=== PATIENT | female | born 1985 | race Caucasian/White ===

== ENCOUNTER → 2023-06-23 08:59 | Outpatient (REF) | payer OTHER, SELFPAY | LOC: HWRAD 08:59 | PROVIDERS: ATTENDING PHYSICIAN Emergency Medicine | DX: M54.41 Lumbago with sciatica, right side (principal); M51.36 Other intervertebral disc degeneration, lumbar region | CPT/HCPCS: 72110 ==

== ENCOUNTER → 2023-06-24 14:31 | Outpatient (REF) | payer OTHER, SELFPAY | LOC: PAVMRI 14:31 | PROVIDERS: ATTENDING PHYSICIAN Emergency Medicine; FAMILY PHYSICIAN Nurse Practitioner Family | DX: M54.41 Lumbago with sciatica, right side (principal); M51.36 Other intervertebral disc degeneration, lumbar region | CPT/HCPCS: 72148 ==

== ENCOUNTER → 2023-08-07 09:19 | Outpatient (REF) | payer OTHER, SELFPAY | LOC: HWRAD 09:19 | PROVIDERS: ATTENDING PHYSICIAN Emergency Medicine | DX: E04.1 Nontoxic single thyroid nodule (principal) | CPT/HCPCS: 76536 ==

== ENCOUNTER 2023-08-07 10:33 | Emergency (ER) | payer OTHER, SELFPAY ==
[2023-08-07 10:41] VITALS: BP 108/74
[2023-08-07 11:32] VITALS: BP 101/70
[2023-08-07 12:00] VITALS: BP 110/80
--- NOTE | 2023-08-07 12:02 | ED.GENMED ---
History of Present Illness
General
Chief Complaint: Cold/Flu/URI Symptoms
Source: patient
Time Seen by Provider: 08/07/23 11:37
Travel History
Have you had any contact with someone who has COVID-19?: No
Do you have any symptoms of coronavirus? Fever > 100 degrees, chills, cough, shortness of breath, sore throat, loss of taste or smell, muscle aches, or headache?: No
History of Present Illness
History of Present Illness:
37-year-old female with past medical history of IBS, anemia, previous upper GI bleed from gastric ulcers presenting the emergency department for evaluation after she started to feel unwell this past Friday with symptoms including mild sore
throat, cough and persistent nausea and vomiting. Patient notes that she has 2 kids at home with 1 who test positive for strep and the other who had a suspected viral etiology with her symptoms being mostly resolved but with the patient's
continuing. Patient had been started on amoxicillin by her primary care provider this past Friday but continued with the nausea and vomiting, saw them again last night due to the persistent symptoms and was switched over to doxycycline but states
woke up this morning with continued nausea and vomiting and feeling generally weak so decided come to the ER for further evaluation. Patient states she has not had any fevers but has felt hot and cold. She has no other concerns at this time and is
denying any abdominal pain.
Past History
Past History
ED Past Medical History: Other (Low phosphorus low iron)
ED Past Surgical History: Urological
Social History
Tobacco: Non-smoker
Alcohol: None
Drug: None
Personal:
Living: with family
Employment: Employed
Family History
Family History: Other (Clotting disorder in maternal grandmother patient has protein S deficiency)
Review of Systems
Review of Systems
All Other Systems: ROS reviewed and negative except as documented in HPI and ROS
Phy Exam
Physical Exam
Physical Exam:
GENERAL: Alert , in no apparent distress
EYE: conjunctiva clear
NECK: Supple
ENT: o/p clr, mmm.
CARDIAC: Regular rate and rhythm
LUNGS: Clear breath sounds bilaterally, no acute respiratory distress, no wheezes/rales/rhonchi, intermittent nonproductive cough during the exam
Abdomen: Soft, hyperactive bowel sounds, nondistended
NEUROLOGICAL: Alert and oriented
SKIN: Warm and dry, skin intact.
MUSCULOSKELETAL: well perfused.
PSYCH: Normal and appropriate interaction.
Scores
Heart Failure Risk
Heart Failure Risk Score: Not Applicable
Heart Score for Chest Pain Patients
STEMI patient?: Not applicable
Withdrawal Assessment of Alcohol
Withdrawal Assessment Completed?: Not applicable
Course
Orders/Labs/Results
Orders:
Orders
08/07/23 11:33
COVID-19 Antigen Urgent
Source: Nasal Swab
Influenza A+B Rapid Molecular Urgent
KORIN Source: Nasal Swab
Specimen Description:
08/07/23 12:01
0.9% Sodium Chloride 1000 ml [Nss] 1,000 ml IV BOLUS
Ondansetron Injectable [Zofran] 4 mg IV NOW STA
08/07/23 12:02
Ondansetron Injectable [Zofran] 4 mg .ROUTE .STK-MED ONE
08/07/23 12:19
Complete Blood Count/With Diff Urgent
Comprehensive Metabolic Panel Urgent
Monotest Urgent
08/07/23 13:08
CR Chest - 2 Views Urgent
Comment:
Reason For Exam: cough x 7 days
Abnormal Lab Results
08/07/23
12:19
MPV 10.5 H fL
(7.4-10.4)
Absolute Monos (auto) 0.7 H 10^3/uL
(0.1-0.6)
08/07/23 12:19
08/07/23 12:19
Vital Signs
Initial and Last Documented VS:
Initial Vital Signs
Temp Pulse Resp BP Pulse Ox
98.1 F 81 18 108/74 100
08/07/23 10:41 08/07/23 10:41 08/07/23 10:41 08/07/23 10:41 08/07/23 10:41
Last Documented Vital Signs
Temp Pulse Resp BP Pulse Ox
98.1 F 81 18 110/80 99
08/07/23 10:41 08/07/23 10:41 08/07/23 10:41 08/07/23 12:00 08/07/23 12:15
MDM/Problems Addressed
Differential Diagnosis Includes:
Viral syndrome, antibiotic associated GI upset, electrolyte disturbance, dehydration, COVID, flu
MDM/Problems Addressed:
37-year-old female presenting to the emergency department for evaluation of GI upset combined with some mild URI-like symptoms over the last 7 days. She has had 2 children at home sick recently. Seen by primary care provider twice and was given
amoxicillin for her infection but with not much relief, switched to doxycycline last night but having worsening GI upset prompting her to come today. COVID and flu was ordered in triage. Will check labs as well as treat with Zofran and fluids.
Reassessment following
*Radiology
Radiology exam reviewed: preliminary read by ED provider (Unremarkable x-ray)
*Pulse Oximetry
Patient hypoxic: no
*Critical Care Note
Total Time (30-74mins, 75-104mins- exclusive of procedures): Not Applicable
ED Attending Note
-
Portions of this chart may have been created with voice recognition software.� Occasional wrong word or��sound alike� substitutions may have occurred due to the inherent limitations of voice recognition software.
Discharge Plan
Departure
Patient Disposition: Home (Routine Discharge)
Date of Disposition: 08/07/23
Time of Disposition: 13:46
Patient with high blood pressure during this ER visit?: No
Discharge Problem:
Nausea and vomiting, Cough
Instructions: Nausea and Vomiting, Adult (DC)
Prescriptions:
New
ondansetron 4 mg tablet,disintegrating
4 mg PO TIDPRN PRN (Reason: nausea/vomiting) Qty: 10 0RF
dextromethorphan-guaifenesin 5-100 mg/5 mL liquid
10 ml PO Q8H PRN (Reason: Cough) Qty: 250 0RF
No Action
polyethylene glycol 3350 17 GRAMS powder in packet
17 grams PO DAILY
cholecalciferol (vitamin D3) [Vitamin D3] 1,000 UNIT capsule
2,000 unit PO DAILY
mecobalamin (vitamin B12) [B12 Active] 1,000 MCG tablet,chewable
1,000 mcg PO DAILY
pantoprazole [Protonix] [address] for susp in packet
40 mg PO DAILY Qty: 30 0RF
Referrals:
Linda Winter MD [Family Provider] -
Stand Alone Forms: Return to Work
Interventions
Interventions:
*Risk Screen - Suicide Last Done: 08/07/23 10:41
*General Assessment Last Done: 08/07/23 10:41
*Neglect/Abuse Screening Last Done: 08/07/23 10:41
*ED COVID-19 Vaccine History Last Done: 08/07/23 10:41
ED- Pulmonary Assessment Last Done: 08/07/23 11:35
[2023-08-07] MEDS: NSS 1000 IV (12:12)
[2023-08-07] MEDS: ZOFRAN 4 MG IV (12:12)
[2023-08-07 12:15] LABS: COVID-19 Antigen Negative (Negative)
[2023-08-07 12:42] LABS: % Basophils 0.3 % (0-2); % Eosinophils 4.3 % (0-6); % Immature Granulocytes 0.3 % (0-0.5); % Lymphocytes 20.5 % (20.5-51.1); % Monocytes 7.6 % (1.7-9.3); Absolute Eosinophils 0.4 10^3/uL (0-0.7); Absolute Lymphocytes 1.8 10^3/uL (1.2-3.4); Absolute Monocytes 0.7 10^3/uL (0.1-0.6); Absolute Neutrophils 5.8 10^3/uL (1.4-6.5); Hematocrit 38.3 % (37.0-47.0); Hemoglobin 13.5 g/dL (12.0-16.0); Mean Corp Hgb Conc. 35.2 g/dL (33.0-37.0); Mean Platelet Volume 10.5 fL (7.4-10.4); Nucleated Red Blood Cells % 0 %; Platelet Count 278 10^3/uL (130-400); Red Blood Cell Count 4.35 10^6/uL (4.20-5.40); Red Cell Dist. Width 12.2 % (11.5-14.5); White Blood Cell Count 8.6 10^3/uL (4.8-10.8)
[2023-08-07 12:49] LABS: ALT (SGPT) 12 U/L (0-35); AST (SGOT) 26 U/L (14-36); Albumin 4.3 g/dl (3.5-5.0); Alkaline Phosphatase 55 U/L (38-126); Blood Urea Nitrogen 9 mg/dl (7-17); Carbon Dioxide 25 mmol/L (22-30); Chloride 105 mmol/L (98-107); Glucose 84 mg/dl (70-99); Potassium 3.9 mmol/L (3.5-5.1); Sodium 137 mmol/L (135-145); eGFR > 60.00
[2023-08-07 13:00] VITALS: BP 87/65
[2023-08-07 13:02] LABS: Monotest Negative (Negative)
[2023-08-07 14:00] VITALS: BP 98/70
== END 2023-08-07 14:49 | disposition home or self-care (01) ==
LOC: EMR 10:33
PROVIDERS: Physician Assistant Medical; EMERGENCY PHYSICIAN Emergency Medicine; FAMILY PHYSICIAN Emergency Medicine
DX: R11.2 Nausea with vomiting, unspecified (principal); R05.9 Cough, unspecified; Z11.52 Encounter for screening for COVID-19
CPT/HCPCS: 99284; 96374; 96361; 71046; 80053; 85025; 86308; 87502; 87811

== ENCOUNTER → 2023-10-01 17:18 | Outpatient (REF) | payer OTHER, SELFPAY | LOC: PAVMRI 17:18 | PROVIDERS: ATTENDING PHYSICIAN Psychiatry & Neurology Neurology; FAMILY PHYSICIAN Emergency Medicine | DX: I72.9 Aneurysm of unspecified site (principal) | CPT/HCPCS: 70544 ==

== ENCOUNTER → 2023-12-18 12:10 | Outpatient (REF) | payer OTHER, SELFPAY | LOC: PAVMRI 12:10 | PROVIDERS: ATTENDING PHYSICIAN Otolaryngology; FAMILY PHYSICIAN Emergency Medicine | DX: R20.0 Anesthesia of skin (principal) | CPT/HCPCS: 70553; A9575 ==

== ENCOUNTER → 2024-04-28 08:50 | Outpatient (REF) | payer OTHER, SELFPAY | LOC: HWRAD 08:50 | PROVIDERS: ATTENDING PHYSICIAN Internal Medicine Endocrinology, Diabetes & Metabolism; FAMILY PHYSICIAN Emergency Medicine | DX: E04.1 Nontoxic single thyroid nodule (principal) | CPT/HCPCS: 76536 ==